=== PATIENT | male | born 1965 | race Caucasian/White ===

== ENCOUNTER 2017-02-26 20:58 | Emergency (ER) | payer MEDICAID, SELFPAY ==
--- NOTE | 2017-02-26 21:34 | XR_ITS ---
XR shoulder RT min 2V HISTORY: Pain ORDERING PHYSICIAN: Parrish Esparza MD PATIENT AGE: 52 years COMPARISON: None FINDINGS: No fracture or dislocation. No lytic or blastic change. There is normal mineralization. Mild osteoarthritic changes of the acromioclavicular joint. There is subacromial stenosis which may result in impingement symptomatology upon the rotator cuff. 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
--- NOTE | 2017-02-26 21:42 | HMH.EDUPEXT ---
ED Disposition Clinical Impression: Right shoulder tendonitis Disposition: Home, Self-Care Condition on Discharge: Good Instructions: Shoulder Sprain Additional Instructions: use meds and call pcp for follow up Prescriptions: predniSONE [Prednisone 20mg Tab] 20 mg PO DAILY #10 tab Referrals: Jesus Ortega MD [Primary Care Provider] - - Critical Care Critical Care Time: No Attestation: On 02/26/17, the high probability of a clinically significant, sudden or life threatening deterioration of the following system(s) required my full and direct attention, intervention and personal management. The time I documented below is in addition to time spent performing reported procedures but includes the following listed in this critical care notation. Medical Decision Making - Medical Records Medical records reviewed: Yes: I reviewed the patient's medical records. Orders (Tests/Meds): ORDERS Category Date Time Status XR shoulder RT min 2V Routine Exams 02/26/17 21:34 Taken - Radiology Data #1 Image(s): Shoulder Image Reviewed: Yes I reviewed the patient's radiology image Preliminary Findings: Normal/NAD - Jan Inquiry Pt receiving controlled substance: No Upper Extremity HPI - General Chief Complaint: Extremity Injury, Upper Stated Complaint: Pain in right shoulder, no accident Time Seen by Provider: 02/26/17 21:43 Mode of Arrival: Ambulatory Source of Information: Patient, Medical Record Limitations: No Limitations - History of Present Illness HPI narrative: pt with atraumatic rt shoulder pain worse over the last few days but has been present for months complaint: injury to: right, shoulder Onset (ago): day(s) Other Extremity Injury: Right: shoulder Other injuries: none Handedness: right Place: home Severity: moderate Exacerbating factors: movement of extremity Treatments prior to arrival: NSAIDS - Related Data Home Medications Medication Instructions Recorded Confirmed Citalopram Hydrobromide [Celexa] 1 tab PO DAILY 02/26/17 02/26/17 Ibuprofen [Ibuprofen 600mg Tab] 1 tab PO TID 02/26/17 02/26/17 Pantoprazole Sodium [Protonix 40mg 40 mg PO DAILY 02/26/17 02/26/17 tablet] raNITIdine HCl [Ranitidine HCl] 1 tab PO DAILY 02/26/17 02/26/17 Previous Rx's Medication Instructions Recorded predniSONE [Prednisone 20mg 20 mg PO DAILY #10 tab 02/26/17 Tab] Allergies Allergy/AdvReac Type Severity Reaction Status Date / Time No Known Allergies Allergy Verified 02/26/17 21:51 [facility] History I have reviewed the patient's past medical history: Yes ROS Obtained: Yes All systems reviewed & no additional complaints - Constitutional Denies fever(s) - Eyes Denies change in vision - Respiratory Denies cough - Musculoskeletal Reports joint pain, Denies neck pain - Neurologic Denies seizure-like activity Physical Exam - General General appearance: alert, in no apparent distress - Head Head exam: atraumatic - Eye Eye exam: Present: PERRL, EOMI - ENT ENT exam: Present: mucous membranes moist - Neck Neck exam: Present: full ROM. Absent: tenderness - Respiratory Respiratory exam: Absent: respiratory distress - Cardiovascular Cardiovascular exam: Present: regular rate - Expanded Upper Extremity Exam Right Arm exam: Present: normal inspection, tenderness. Absent: full ROM - Expanded Lower Extremity Exam Right Neurovascular/Tendon exam: Present: normal capillary refill Gait: observed and normal - Neurological Exam Neurological exam: Present: oriented X3, CN II-XII intact - Psychiatric Psychiatric exam: Present: normal affect - Skin Skin exam: Absent: rash
[2017-02-26 21:44] VITALS: BP 124/70; PULSE 110; RESP 16; TEMP 37; O2SAT 95; BMI 34.8
--- NOTE | 2017-02-26 21:45 | ED_ITS ---
ED Disposition Clinical Impression: Right shoulder tendonitis Disposition: Home, Self-Care Condition on Discharge: Good Instructions: Shoulder Sprain Additional Instructions: use meds and call pcp for follow up Prescriptions: predniSONE [Prednisone 20mg Tab] 20 mg PO DAILY #10 tab Referrals: Jesus Ortega MD [Primary Care Provider] - - Critical Care Critical Care Time: No Attestation: On 02/26/17, the high probability of a clinically significant, sudden or life threatening deterioration of the following system(s) required my full and direct attention, intervention and personal management. The time I documented below is in addition to time spent performing reported procedures but includes the following listed in this critical care notation. Medical Decision Making - Medical Records Medical records reviewed: Yes: I reviewed the patient's medical records. Orders (Tests/Meds): ORDERS Category Date Time Status XR shoulder RT min 2V Routine Exams 02/26/17 21:34 Taken - Radiology Data #1 Image(s): Shoulder Image Reviewed: Yes I reviewed the patient's radiology image Preliminary Findings: Normal/NAD - Jan Inquiry Pt receiving controlled substance: No Upper Extremity HPI - General Chief Complaint: Extremity Injury, Upper Stated Complaint: Pain in right shoulder, no accident Time Seen by Provider: 02/26/17 21:43 Mode of Arrival: Ambulatory Source of Information: Patient, Medical Record Limitations: No Limitations - History of Present Illness HPI narrative: pt with atraumatic rt shoulder pain worse over the last few days but has been present for months complaint: injury to: right, shoulder Onset (ago): day(s) Other Extremity Injury: Right: shoulder Other injuries: none Handedness: right Place: home Severity: moderate Exacerbating factors: movement of extremity Treatments prior to arrival: NSAIDS - Related Data Home Medications Medication Instructions Recorded Confirmed Citalopram Hydrobromide [Celexa] 1 tab PO DAILY 02/26/17 02/26/17 Ibuprofen [Ibuprofen 600mg Tab] 1 tab PO TID 02/26/17 02/26/17 Pantoprazole Sodium [Protonix 40mg 40 mg PO DAILY 02/26/17 02/26/17 tablet] raNITIdine HCl [Ranitidine HCl] 1 tab PO DAILY 02/26/17 02/26/17 Previous Rx's Medication Instructions Recorded predniSONE [Prednisone 20mg 20 mg PO DAILY #10 tab 02/26/17 Tab] Allergies Allergy/AdvReac Type Severity Reaction Status Date / Time No Known Allergies Allergy Verified 02/26/17 21:51 [facility] History I have reviewed the patient's past medical history: Yes ROS Obtained: Yes All systems reviewed & no additional complaints - Constitutional Denies fever(s) - Eyes Denies change in vision - Respiratory Denies cough - Musculoskeletal Reports joint pain, Denies neck pain - Neurologic Denies seizure-like activity Physical Exam - General General appearance: alert, in no apparent distress - Head Head exam: atraumatic - Eye Eye exam: Present: PERRL, EOMI - ENT ENT exam: Present: mucous membranes moist - Neck Neck exam: Present: full ROM. Absent: tenderness - Respiratory Respiratory exam: Absent: respiratory distress - Cardiovascular Cardiovascular exam: Present: regular
[2017-02-26 22:27] VITALS: BP 128/72; PULSE 96; RESP 16; TEMP 36.9; O2SAT 96
== END 2017-02-26 22:30 | disposition home or self-care (01) ==
PROVIDERS: Emergency Provider Emergency Medicine; Family Provider Internal Medicine Adolescent Medicine; PCP Internal Medicine Adolescent Medicine
DX: M75.91 Shoulder lesion, unspecified, right shoulder (principal); Z79.899 Other long term (current) drug therapy
CPT/HCPCS: 73030; 99282

== ENCOUNTER → 2017-09-12 07:32 | Outpatient (CLI) | payer MEDICAID, SELFPAY ==
--- NOTE | 2017-09-12 07:43 | US_ITS ---
US abdomen limited History:Right upper quadrant pain Ordering Physician:Henna Andersen Patient Age: 52 years Comparison:None Findings: Pancreas:Unremarkable. No obvious mass or abnormal fluid collection. No ductal dilatation portion of the tail is obscured by bowel gas. Liver: The liver is normal in size and show scattered areas of increased echogenicity consistent with fatty infiltration. Right Kidney:Unremarkable. Normal size measuring 11.8 x 5.4 x 7.3 cm and sonographically normal in appearance. No hydronephrosis Gallbladder:No gallstones, gallbladder wall thickening, pericholecystic fluid, or biliary dilatation. There is a trace amount biliary sludge. Impression:Minimal scattered areas of fatty liver along with trace biliary sludge
[2017-09-12 08:39] LABS: Basophils # 0.1 K/mm3 (0-0.2); Basophils % 0.8 % (0.1-2.0); Eosinophils # 0.3 K/mm3 (0.0-0.4); Eosinophils % 3.8 % (0.1-12.0); Hematocrit 46.3 % (42.0-52.0); Hemoglobin 15.1 g/dL (14.1-18.0); Lymphocytes % 23.2 K/mm3 (10-50); Mean Corpuscular HGB Conc 32.7 g/dL (31.8-35.4); Mean Corpuscular Hemoglobin 32.5 pg (27.0-31.2); Mean Corpuscular Volume 99.5 fl (80-94); Mean Platelet Volume 6.7 fl (7.4-10.4); Monocytes # 0.5 K/mm3 (0.1-1.0); Neutrophils # 5.6 K/mm3 (1.8-7.8); Neutrophils % 66.2 % (37.0-80.0); Platelet Count 350 K/mm3 (142-424); Red Blood Count 4.65 M/mm3 (4.60-6.20); Red Cell Distribution Width 13.7 % (11.5-17.5); White Blood Count 8.5 K/mm3 (4.8-10.8)
[2017-09-12 09:54] LABS: Alanine Aminotransferase 27 U/L (12-78); Albumin Level 3.7 gm/dL (3.4-5.0); Alkaline Phosphatase 125 U/L (46-116); Anion Gap 11.5 mEq/L (5-15); Aspartate Amino Transferase 14 U/L (15-37); Bilirubin,Total 0.4 mg/dL (0.2-1.0); Blood Urea Nitrogen 20 mg/dL (7-18); Calcium 8.8 mg/dL (8.5-10.1); Carbon Dioxide 30 mmol/L (21.0-32.0); Chloride 106 mmol/L (98-107); Cholesterol 195 mg/dL (140-200); Creatinine,Serum 0.71 mg/dL (0.70-1.30); Estimated Glomerular Filt Rate 117 ml/min (>60); GFR (African American) 141 ML/MIN (>60); Globulin 3.6 gm/dl (1.3-3.2); Glucose 110 mg/dL (74-106); HDL Cholesterol 39 mg/dL (27-67); LDL Cholesterol 134 mg/dL (0-130); Potassium 4.5 mmoL/L (3.5-5.1); Sodium 143 mmol/L (136-145); Thyroid Stimulating Hormone 1.15 uIU/ml (0.358-3.740); Total Protein,Serum 7.3 gm/dL (6.4-8.2); Triglycerides 112 mg/dL (30-200); VLDL Cholesterol 22 mg/dL (0-40)
[2017-09-15 06:33] LABS: Vitamin D 25 Hydroxy 21.7 ng/mL (30.0-100.0)
== END ==
PROVIDERS: Family Provider Internal Medicine Adolescent Medicine; PCP Internal Medicine Adolescent Medicine; Visit Provider Nurse Practitioner Family
DX: R10.11 Right upper quadrant pain (principal)
CPT/HCPCS: 36415; 76705; 80053; 80061; 82652; 84443; 85025

== ENCOUNTER → 2018-04-20 15:39 | Outpatient (CLI) | payer MEDICAID, SELFPAY ==
--- NOTE | 2018-04-20 15:47 | XR_ITS ---
XR hand LT min 3V HISTORY: ITS.REASON: LEFT 3RD FINGER PAIN ORDERING PHYSICIAN: Aroldo Cardoso MD PATIENT AGE: 53 years COMPARISON: None FINDINGS: No fracture or dislocation is evident. The third digit has an unremarkable appearance. There are mild osteoarthritic changes of the interphalangeal joint of the,. 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
== END ==
PROVIDERS: PCP Internal Medicine Adolescent Medicine; Visit Provider Internal Medicine Adolescent Medicine
DX: M65.332 Trigger finger, left middle finger (principal); M79.642 Pain in left hand
CPT/HCPCS: 73130

== ENCOUNTER 2018-04-30 15:45 | Outpatient (RCR) | payer MEDICAID, SELFPAY | END 2018-04-30 15:55 | disposition home or self-care (01) | LOC: PT 15:45 | PROVIDERS: Visit Provider Orthopaedic Surgery | DX: M65.30 Trigger finger, unspecified finger (principal); G56.02 Carpal tunnel syndrome, left upper limb | CPT/HCPCS: 97763 ==

== ENCOUNTER 2024-05-30 13:55 | Outpatient (CLI) | payer OTHER, SELFPAY ==
[2024-05-30 18:47] LABS: Basophils # 0.1 K/mm3 (0-0.2); Basophils % 1.1 % (0.1-2.0); Eosinophils # 0.3 K/mm3 (0.0-0.4); Eosinophils % 3.2 % (0.1-12.0); Hemoglobin 13.7 g/dL (14.1-18.0); Lymphocytes % 23.9 % (10-50); Mean Corpuscular HGB Conc 34.3 g/dL (31.8-35.4); Mean Corpuscular Hemoglobin 32.4 pg (27.0-31.2); Mean Corpuscular Volume 94.6 fl (80-94); Mean Platelet Volume 9.2 fl (7.4-10.4); Monocytes # 0.8 K/mm3 (0.1-1.0); Monocytes % 9.3 % (1.7-9.3); Neutrophils # 5.1 K/mm3 (1.8-7.8); Nucleated Red Blood Cells # 0 10^3/uL; Nucleated Red Blood Cells % 0 %; Platelet Count 287 K/mm3 (142-424); Red Blood Count 4.23 M/mm3 (4.60-6.20); Red Cell Distribution Width 13.9 % (11.5-17.5); Red Cell Distribution Width-SD 48.3 fL; White Blood Count 8.2 K/mm3 (4.8-10.8)
[2024-05-30 19:24] LABS: Albumin Level 4.2 g/dl (3.5-5.0); Chloride 103 mmol/L (98-107); Potassium 4.3 mmoL/L (3.5-5.1); Sodium 138 mmol/L (136-145)
[2024-05-30 19:27] LABS: Alanine Aminotransferase 18 U/L (12-78); Albumin/Globulin Ratio 1.4 (1.1-1.8); Alkaline Phosphatase 128 U/L (38-126); Anion Gap 13.3 mEq/L (5-15); Aspartate Amino Transferase 23 U/L (17-59); Bilirubin,Total 0.4 mg/dl (0.2-1.3); Blood Urea Nitrogen 19 mg/dl (9-20); Calcium 9.5 mg/dl (8.4-10.2); Carbon Dioxide 26 mmol/L (22.0-30.0); Chol/HDL Ratio 3.4 (1-3.5); Cholesterol 147 mg/dl (140-200); Estimated Glomerular Filt Rate 99 ml/min (>60); GFR (African American) 120 ML/MIN (>60); Globulin 3.1 g/dL (1.3-3.2); Glucose 118 mg/dl (74-100); HDL Cholesterol 43 mg/dl (40-60); Total Protein,Serum 7.3 g/dl (6.3-8.2); Triglycerides 124 mg/dl (30-150); VLDL Cholesterol 25 mg/dL (0-40)
[2024-05-30 19:38] LABS: Direct LDL Cholesterol 76.74 mg/dL (100-129)
[2024-05-30 19:40] LABS: 25-OH Vitamin D, Total 21.5 ng/mL (30-100)
[2024-05-30 21:50] LABS: Hemoglobin A1C 5.7 % (4.0-6.0)
== END 2024-05-30 23:59 | disposition home or self-care (01) ==
LOC: LAB.DROPOF 05-31 10:31
PROVIDERS: PCP Family Medicine; Visit Provider Family Medicine
DX: Z00.00 Encounter for general adult medical examination without abnormal findings (principal); E66.3 Overweight; M77.8 Other enthesopathies, not elsewhere classified; Z13.1 Encounter for screening for diabetes mellitus
CPT/HCPCS: 80053; 80061; 82306; 83036; 84443; 85025

== ENCOUNTER 2024-08-02 15:02 | Outpatient (CLI) | payer MEDICARE, SELFPAY ==
[2024-08-02 19:01] LABS: Prostate Specific Ag Screen 0.7 ng/ml (0.0-4.0)
[2024-08-02 19:32] LABS: HIV Combo NEGATIVE (Negative)
[2024-08-02 19:47] LABS: Hepatitis C Ab Qual. W/ RFX NEGATIVE (Negative)
[2024-08-04 10:09] LABS: Hepatitis B Surface Antigen Negative (Negative)
== END 2024-08-02 23:59 | disposition home or self-care (01) ==
LOC: LAB.DROPOF 22:53
PROVIDERS: PCP Family Medicine; Visit Provider Family Medicine
DX: Z12.5 Encounter for screening for malignant neoplasm of prostate (principal); Z11.59 Encounter for screening for other viral diseases
CPT/HCPCS: 86803; 87340; 87389; G0103

== ENCOUNTER 2024-12-03 19:54 | Outpatient (CLI) | payer MEDICARE, SELFPAY ==
[2024-12-03 21:21] LABS: Hematocrit 40.0 % (42.0-52.0); Hemoglobin 14.1 g/dL (14.1-18.0); Immature Granulocytes % 0.3 %; Mean Corpuscular HGB Conc 35.3 g/dL (31.8-35.4); Mean Corpuscular Hemoglobin 32.9 pg (27.0-31.2); Mean Corpuscular Volume 93.5 fl (80-94); Nucleated Red Blood Cells % 0 %; Platelet Count 275 K/mm3 (142-424); Red Blood Count 4.28 M/mm3 (4.60-6.20); Red Cell Distribution Width-SD 45.5 fL; White Blood Count 6.1 K/mm3 (4.8-10.8)
[2024-12-03 21:33] LABS: Hemoglobin A1C 5.9 % (4.0-6.0)
[2024-12-03 21:37] LABS: Alanine Aminotransferase 22 U/L (12-78); Albumin Level 4.1 g/dl (3.5-5.0); Albumin/Globulin Ratio 1.5 (1.1-1.8); Alkaline Phosphatase 140 U/L (38-126); Anion Gap 13.4 mEq/L (5-15); Aspartate Amino Transferase 23 U/L (17-59); Bilirubin,Total 0.6 mg/dl (0.2-1.3); Blood Urea Nitrogen 26 mg/dl (9-20); Calcium 9.2 mg/dl (8.4-10.2); Carbon Dioxide 25 mmol/L (22.0-30.0); Chloride 102 mmol/L (98-107); Creatinine,Serum 0.90 mg/dl (0.66-1.25); Estimated Glomerular Filt Rate 86 ml/min (>60); GFR (African American) 105 ML/MIN (>60); Globulin 2.8 g/dL (1.3-3.2); Glucose 122 mg/dl (74-100); Potassium 4.4 mmoL/L (3.5-5.1); Sodium 136 mmol/L (136-145); Total Protein,Serum 6.9 g/dl (6.3-8.2)
[2024-12-03 21:53] LABS: 25-OH Vitamin D, Total 25.4 ng/mL (30-100)
== END 2024-12-03 23:59 | disposition home or self-care (01) ==
LOC: LAB.DROPOF 19:55
PROVIDERS: PCP Family Medicine; Visit Provider Family Medicine
DX: E55.9 Vitamin D deficiency, unspecified (principal); I10 Essential (primary) hypertension; D64.9 Anemia, unspecified; R73.03 Prediabetes; R74.8 Abnormal levels of other serum enzymes
CPT/HCPCS: 80053; 82306; 83036; 85025

== ENCOUNTER 2024-12-17 10:02 | Outpatient (CLI) | payer MEDICARE, SELFPAY ==
--- NOTE | 2024-12-17 11:00 | US_ITS ---
FINAL REPORT CLINICAL HISTORY: abnormal labs FINDINGS: RIGHT UPPER QUADRANT ULTRASOUND Technique: Ultrasound images of the right upper quadrant were obtained. There is fatty infiltration of the liver. The gallbladder is well visualized and the wall appears normal. There is some mild ringdown artifact arising from the anterior wall of the gallbladder, may be related to adenomyomatosis. The common bile duct is not well-seen. The right kidney is unremarkable. IMPRESSION: Questionable adenomyomatosis of the gallbladder. No gallstones identified. Reviewed, Interpreted and Dictated by Oleg Christianson MD Transcribed by Hannah Moore Authenticated and [facility]
== END 2024-12-17 23:59 | disposition home or self-care (01) ==
LOC: RAD 10:03
PROVIDERS: PCP Family Medicine; Visit Provider Family Medicine
DX: R93.2 Abnormal findings on diagnostic imaging of liver and biliary tract (principal); R74.8 Abnormal levels of other serum enzymes
CPT/HCPCS: 76705

== ENCOUNTER 2025-01-24 11:12 | Outpatient (CLI) | payer MEDICARE, SELFPAY ==
[2025-01-21 09:05] VITALS: BMI 41.6
[2025-01-24 12:26] LABS: Hematocrit 40.8 % (42.0-52.0); Hemoglobin 14.5 g/dL (14.1-18.0); Immature Granulocytes % 0.4 %; Mean Corpuscular HGB Conc 35.5 g/dL (31.8-35.4); Mean Corpuscular Hemoglobin 33.1 pg (27.0-31.2); Mean Corpuscular Volume 93.2 fl (80-94); Nucleated Red Blood Cells % 0 %; Platelet Count 277 K/mm3 (142-424); Red Blood Count 4.38 M/mm3 (4.60-6.20); Red Cell Distribution Width-SD 43.9 fL; White Blood Count 7.4 K/mm3 (4.8-10.8)
[2025-01-24 12:31] LABS: Albumin Level 4.4 g/dl (3.5-5.0); Chloride 103 mmol/L (98-107); Potassium 4.1 mmoL/L (3.5-5.1); Sodium 141 mmol/L (136-145)
[2025-01-24 12:34] LABS: Alanine Aminotransferase 23 U/L (12-78); Albumin/Globulin Ratio 1.2 (1.1-1.8); Alkaline Phosphatase 103 U/L (38-126); Anion Gap 17.1 mEq/L (5-15); Aspartate Amino Transferase 25 U/L (17-59); Bilirubin,Total 0.5 mg/dl (0.2-1.3); Blood Urea Nitrogen 17 mg/dl (9-20); Calcium 8.8 mg/dl (8.4-10.2); Carbon Dioxide 25 mmol/L (22.0-30.0); Creatinine Clearance Estimated 88 mL/min (50-200); Creatinine,Serum 0.90 mg/dl (0.66-1.25); Estimated Glomerular Filt Rate 86 ml/min (>60); GFR (African American) 105 ML/MIN (>60); Globulin 3.6 g/dL (1.3-3.2); Glucose 111 mg/dl (74-100); Total Protein,Serum 8.0 g/dl (6.3-8.2)
== END 2025-01-24 23:59 | disposition home or self-care (01) ==
LOC: PREOP 11:14
PROVIDERS: PCP Family Medicine; Visit Provider Surgery
DX: Z01.812 Encounter for preprocedural laboratory examination (principal); Z01.818 Encounter for other preprocedural examination
CPT/HCPCS: 80053; 85025

== ENCOUNTER 2025-01-30 05:55 | Day surgery (SDC) | payer MEDICARE, SELFPAY ==
[2025-01-24 14:12] VITALS: BMI 41.6
[2025-01-30] VITALS (11 sets, daily range): BP systolic 112–145; BP diastolic 55–74; PULSE 62–81; RESP 14–18; TEMP 36.1–38; O2SAT 88–97
[2025-01-30] MEDS: 0.9 % SODIUM CHLORIDE 1000ML 1,000 ML 25 ML IV (06:30)
[2025-01-30] MEDS: CEFAZOLIN 2GM VIAL 2 GM (07:23)
[2025-01-30] MEDS: LIDOCAINE 1% 20ML MDV 20 ML (07:23)
--- NOTE | 2025-01-30 07:25 | EXP.ANES.CKL ---
[facility] Disclaimer: The information contained in this section may have been updated after the patient was seen, as this information can be updated by other users. Medical History Encounter for pre-operative cardiovascular clearance High alkaline phosphatase Surgical History History of colonoscopy Hx of carpal tunnel repair Hx of cataract surgery Hx of knee surgery Family History Mother Cancer Father Cancer Sister Cancer Heart attack Social History (Updated 01/30/25 @ 06:28 by Teresita Montalvo RN) Smoking Status: Current every day smoker tobacco type: cigarettes packs per day: 2 alcohol intake: never counseling provided: none substance use type: denies use current occupational status: employed and disabled Travel in the last 8 weeks?: None caffeine: Yes Have you lived/traveled outside [place] in past 30 days?: No Contact w/someone who lives/traveled outside [place] past 30 days?: No Exposure to someone with infectious disease in past 14 days?: No Do you have a fever (greater than 100.4 F or 38 C)?: No Have you tested positive for COVID-19?: No Exposed to someone with COVID-19 in past 14 days?: No Do you have a sore throat?: No Do you have a cough?: No Do you have any weakness?: No Are you experiencing any nausea/vomitting?: No Do you have any diarrhea?: No Are you experiencing any unusual bleeding?: No Do you have any muscle aches/pain?: No Do you have any abdominal pain?: No Are you experiencing loss of taste or smell?: No [facility] Anesthesia Checklist Patient Identification Patient Identification: Arm Band Structural Data Admitted From: Home Planned Operative Procedure/s: Laparoscopic Cholecystectomy Consent for Planned Operative Procedure(s) Verified: Yes Verified Documents: Surgical Consent and History and Physical NPO Status Verified Time NPO: 00:00 Additional verifications Anesthesia Reactions: No Airway Assessment Mallampati Score:: Class II C-Spine Mobility Assessed: Yes TMJ Mobility Assessed: Yes Dentition: Edentulous Neurological Assessment Level of Consciousness: Awake, Alert and Appropriate Anesthesia Plan Anesthesia Risk discussed: Yes Anesthesia Plan: Verified ASA Class: III Anesthesia Type: General
--- NOTE | 2025-01-30 08:06 | EXP.OP.NOTE ---
Date of procedure: 01/30/25 Pre-op Diagnosis:: Abnormal gallbladder ultrasound Right upper quadrant pain Post-op Diagnosis:: Chronic cholecystitis Procedure performed:: Laparoscopic cholecystectomy Surgeon:: Roberto Harvey MD [employer] OPERATOR:: Don Saez Anesthesia: GETMychal Estimated blood loss (mL): 15 Operative findings:: Fairly severe infundibular thickening Operative note:: After informed consent was obtained, the patient was taken to the operating room and placed in the supine position. General anesthesia was induced and the abdomen was prepped and draped in a sterile fashion. After infiltration with local anesthetic an supraumbilical incision was made. A Veress needle was placed in position. The abdomen was insufflated. A 5 mm optical trocar was placed in position. Under direct visualization, a 12 mm trocar was placed in the subxiphoid position and 2 additional 5 mm trocars were placed in the right upper quadrant. The gallbladder was elevated up and over the liver margin. The tissue around the cystic duct was carefully dissected. 3 clips were placed proximally and the duct was transected with harmonic angela. Harmonic angela were then utilized to dissect the gallbladder away from the liver margin with careful attention to the control of the cystic artery. The gallbladder was placed in a retrieval bag and removed through the subxiphoid trocar site. The right upper quadrant was thoroughly irrigated. No active bleeding or bile leak was noted. Fascia at the subxiphoid trocar site was reapproximated utilizing the NeoClose device. The remaining trocars were removed. All wounds were irrigated and skin was closed with 4-0 Monocryl in a subcuticular fashion. Steri-Strips were applied. The patient's anesthetic agents were reversed and extubation was completed prior to transfer to recovery in stable condition. Condition: stable Disposition: PACU Specimens:: Gallbladder and contents Complications:: No immediate
--- NOTE | 2025-01-30 08:27 | P.PNANES_ITS ---
[facility] Anesthesia Record Part I Anesthesia Record I Intake, IV Amount: 1,100 Hydration: Adequate Estimated blood loss (mL): 10 Urine output (mL): 0 Blood Products used (#): none Blood Pressure: 145/74 SaO2: 90 Pulse Rate: 65 Airway Patency: Patent Respiratory Rate: 16 Temperature: 97 F Patient is:: Drowsy and Stable Stable to PACU at:: 08:20
[2025-01-30] MEDS: MORPHINE 2MG/ML SYRINGE 2 MG IV (08:57)
--- NOTE | 2025-01-30 09:26 | SUR.PHASEI ---
patient noted to have small skin tear to bilateral arms. upon arrival in pacu patient was thrashing in bed and hitting arms across rails of bed. was able to reorient and redirect patient behavior. patient became calm. was on 4l at beginning. noted some desats with sleep. patient easily woke up and started complaining of pain. noted sats went up with deep breathing, cough, and incentive spirometer use. dose of morphine given per orders. patient resting comfortably on room air. transferred to post op. patient noted he wore cpap at home
--- NOTE | 2025-01-31 07:44 | EXP.ANES.II ---
[facility] Anesthesia Record Part II Anesthesia Record Part II Discharge Time: 09:35 Destination: Surgical Day Care (OP Surgery) PACU nurse assessment reviewed?: Yes Patient Condition:: Good Anesthesia Complications:: None Swallowing reflex intact?: Yes Airway Patency: Patent Cyanosis?: No Blood Pressure: 112/56 SaO2: 93 Respiratory Rate: 18 Pulse Rate: 78 Temperature: 97.4 F Mental Status: Alert & Oriented Pain level:: 0 Nausea and/or vomitting:: None Intake, IV Amount: 0 Hydration: Adequate
[2025-01-31 07:45] VITALS: BP 112/56; PULSE 78; RESP 18; TEMP 36.3; O2SAT 93
== END 2025-01-30 09:40 | disposition home or self-care (01) ==
PROVIDERS: PCP Family Medicine; Visit Provider Surgery
PROC: 0FT44ZZ Resection of Gallbladder, Percutaneous Endoscopic Approach (ICD-10-PCS; CPT 47562; principal; 2025-01-30 07:30)
DX: K81.0 Acute cholecystitis (principal); F17.210 Nicotine dependence, cigarettes, uncomplicated; R74.8 Abnormal levels of other serum enzymes; Z79.1 Long term (current) use of non-steroidal anti-inflammatories (NSAID); Z79.899 Other long term (current) drug therapy; Z79.85 Long-term (current) use of injectable non-insulin antidiabetic drugs
CPT/HCPCS: 47562; 88304; 96374; J0690; J1100; J2003; J2250; J2270; J2405; J2704; J3010; J7030